=== PATIENT | male | born 1980 | race Caucasian/White ===

== ENCOUNTER → 2016-07-05 | Outpatient (CLI) | payer BC ==
[~2016-07-05] MED LIST: BP PILL; CLARITIN10 MG PO; CLONIDINE0.1 MG PO; FLONASE ALLERG9.9 ML NAS; NAPROSYN500 MG PO; PREDNISONE10 MG PO; ROBAXIN500 MG PO; ROBITUSSIN AC 110 ML PO
== END | disposition home or self-care (01) ==
LOC: CARD 11:21
DX: R94.31 Abnormal electrocardiogram [ECG] [EKG] (principal)

== ENCOUNTER → 2019-12-19 | Outpatient (CLI) | payer BC | END | disposition home or self-care (01) | LOC: CARD 15:34 | DX: F90.0 Attention-deficit hyperactivity disorder, predominantly inattentive type (principal) ==